=== PATIENT | female | born 1930 | race Caucasian/White ===

== ENCOUNTER 2018-02-18 19:57 | Emergency (ER) | payer MEDICARE, BC ==
[2018-02-18 20:09] VITALS: BP 152/82
--- NOTE | 2018-02-18 21:33 | EDM.PDOC ---
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 According to the patient's daughter, the patient fell around midnight 02/13/2018 at [facility], fracturing her left humerus. She was seen by Dr. Chaves, who placed the patient into an arm immobilizer with instructions that it not be removed. He did not recommend surgery. Tramadol was prescribed, to be given three times a day, with Percocet for breakthrough pain. The patient was apparently doing well up until today. According to the [facility], the patient was either not offered or refused to take her noon and evening tramadol, and may have refused to take Percocet. The patient's PCP, Dr. Jeanette Martinez, was contacted, and discontinued the scheduled Percocet, but started the patient on a Duragesic patch 25 g, which was started today. The patient now presents with increased left arm pain. The patient's daughter and son are concerned that something may have happened to her left arm to make her pain worse. We note that the patient is wearing a one-piece short-sleeved blouse under the arm immobilizer, that the daughter states the patient was not wearing yesterday. In order to put it on, the arm immobilizer must have been removed. Left Arm Pain Score (Numeric/FACES): 5 - Related Data Allergies Allergy/AdvReac Type Severity Reaction Status Date / Time fish derived Allergy Itching Verified 02/18/18 20:09 Home Meds: Home Meds Acetaminophen [Tylenol] 650 mg PO TID 02/18/18 [History] Acetaminophen/oxyCODONE [Percocet 325-5 MG] 1 tab PO Q6H PRN 02/18/18 [History] Benazepril [Lotensin] 20 mg PO DAILY 02/18/18 [History] Bisacodyl [Dulcolax] 10 mg RECTAL DAILY PRN 02/18/18 [History] Calcium Carbonate/Vitamin D3 [Oyster Shell 500-Vit D3 200 Tb] 1 tab PO TID 02/18 [History] Cholecalciferol (Vitamin D3) [Vitamin D3] 1,000 units PO DAILY 02/18/18 [History ] Clopidogrel [Plavix] 75 mg PO DAILY 02/18/18 [History] Cyanocobalamin (Vitamin B-12) [B-12] 1,000 mcg PO DAILY 02/18/18 [History] FLUoxetine HCl [Prozac] 20 mg PO DAILY 02/18/18 [History] Famotidine [Pepcid] 40 mg PO DAILY 02/18/18 [History] Gabapentin [Neurontin] 300 mg PO BEDTIME 02/18/18 [History] Metoprolol Tartrate 25 mg PO BID 02/18/18 [History] Multivitamin with Minerals [Multiple Vitamin] 1 tab PO DAILY 02/18/18 [History] Potassium Chloride [Klor-Con M20] 20 meq PO DAILY 02/18/18 [History] Sennosides [Senna] 8.6 mg PO DAILY PRN 02/18/18 [History] Terazosin [Hytrin] 4 mg PO DAILY 02/18/18 [History] amLODIPine Besylate [Norvasc] 10 mg PO DAILY 02/18/18 [History] fentaNYL [Duragesic] 25 mcg TRDERM Q72H 02/18/18 [History] hydroCHLOROthiazide [Hydrochlorothiazide] 25 mg PO DAILY 02/18/18 [History] Past Medical History Cardiovascular History: Reports: Hypertension, Other (See Below) (Aortic stenosis) Gastrointestinal History: Reports: Diverticulosis Genitourinary History: Reports: Urinary Incontinence Musculoskeletal History: Reports: Osteoarthritis, Osteoporosis, Other (See Below ) (Lumbar stenosis) Neurological History: Reports: CVA (Expressive aphasia, dysphagia, left hemiparesis) Psychiatric History: Reports: Anxiety, Depression Oncologic (Cancer) History: Reports: Other (See Below) (Myelodysplastic syndrome ) - Past Surgical History HEENT Surgical History: Reports: Cataract Surgery, Oral Surgery (Dentures), Tonsillectomy Cardiovascular Surgical History: Reports: Carotid Endarterectomy (right) Female Surgical History: Reports: D&C (x 1) Musculoskeletal Surgical History: Reports: ORIF (left forearm), Other (See Below ) (Left foot surgery) Oncologic Surgical History: Reports: Bone Marrow Aspiration Social & Family History - Tobacco Use Smoking Status *Q: Former Smoker Month/Year Tobacco Last Used: Quit 1959 - Alcohol Use Alcohol Use History: Yes Alcohol Use Frequency: Socially - Recreational Drug Use Recreational Drug Use: No - Living Situation & Occupation Living situation: Reports: , Extended Care Facility ([facility]) Occupation: Retired Review of Systems - Review of Systems Review Of Systems: ROS reveals no pertinent complaints other than HPI. ED EXAM, GENERAL - Physical Exam Exam: See Below Exam Limited By: No Limitations General Appearance: Alert, WD/WN, No Apparent Distress Extremities: Other (Left upper extremity is in an arm immobilizer, which was not removed, in accordance with Dr. Chaves instructions. There is ecchymosis from the shoulder down to the mid arm, the visible portion of her arm not covered by the ER immobilizer. The upper portion of the patient's arm is very tender to any palpation. Neurovascular status of the left upper extremity is intact.) Course - Vital Signs Last Recorded V/S: Last Vital Signs Temp 36.6 C 02/18/18 20:04 Pulse 81 02/18/18 20:04 Resp 16 02/18/18 20:04 BP 152/82 H 02/18/18 20:04 Pulse Ox 92 L 02/18/18 20:04 - Orders/Labs/Meds Orders: Active Orders 24 hr Category Date Time Status Humerus Lt [CR] Stat Exams 02/18/18 20:47 Taken - Re-Assessments/Exams Free Text/Narrative Re-Assessment/Exam: 02/18/18 21:29 2-view radiographs of the left humerus appear to demonstrate a proximal humerus fracture with anterior displacement. Advanced osteopenia. Formal read per the Radiologist pending. 02/18/18 21:37 X-ray results discussed with the patient and her daughter. I don't see any indication to try to manipulate the patient's humerus at this point, nor do I see any indication to change the patient's current pain medication regimen, which includes the fentanyl patch and prn Percocet. The scheduled tramadol has been discontinued. This seems appropriate. The patient may safely be returned to the [facility]. Departure - Departure Time of Disposition: 21:39 Disposition: DC/Tfer to [facility] Condition: Good Clinical Impression: Closed fracture of left proximal humerus - Discharge Information *PRESCRIPTION DRUG MONITORING PROGRAM REVIEWED*: Not Applicable *COPY OF PRESCRIPTION DRUG MONITORING REPORT IN PATIENT ANTONIO: Not Applicable Instructions: Humerus Fracture Treated With Immobilization, [id number] Referrals: Hayden Zelaya MD [Primary Care Provider] - Pablo Chaves DO [Physician] - Forms: ED Department Discharge Additional Instructions: Ms. Heck was seen in the emergency room for increased left arm pain, after fracturing her left humerus on 02/13/2018. Workup in the ER included x-rays of her left humerus, which show a displaced proximal humerus fracture, in reasonable position for the injury. We recommend that she continue on the Duragesic patch and Percocet on an as- needed basis. She should remain in the shoulder immobilizer as she is. Have her follow-up with Dr. Chaves at her next scheduled appointment. If any other problems, please do not hesitate to return Ms. Heck to the ER. - My Orders Last 24 Hours: My Active Orders 02/18/18 20:47 Humerus Lt [CR] Stat - Assessment/Plan Last 24 Hours: My Active Orders 02/18/18 20:47 Humerus Lt [CR] Stat
--- NOTE | 2018-02-19 06:52 | CR ---
Left humerus: Two views of the left humerus were obtained. Comparison: No previous studies available for comparison. Displaced fracture is seen within the proximal humerus. Displacement is greater than 1 cm. Plate and screws are seen within the proximal forearm. Bony structures are severely osteoporotic which makes evaluation somewhat difficult. Compression deformity is seen within the mid thoracic spine which is likely old. Lesser compression deformities are seen more inferiorly within the thoracic spine which are also most likely old. Impression: 1. Displaced fracture within the proximal humerus. I see no callus and this could possibly be acute or subacute. 2. Previous plate and screws within the proximal forearm. 3. Osteoporosis and compression deformities within the spine. Diagnostic code #3
== END 2018-02-18 22:04 ==
LOC: JD.ED 19:57
DX: S42.202A Unspecified fracture of upper end of left humerus, initial encounter for closed fracture (principal); I10 Essential (primary) hypertension; Z91.013 Allergy to seafood; Z79.899 Other long term (current) drug therapy; Z87.891 Personal history of nicotine dependence; W19.XXXA Unspecified fall, initial encounter
CPT/HCPCS: 73060-26-LT; 73060-LT; 99285